=== PATIENT | female | born 1985 | race Two or more races ===

== ENCOUNTER 2019-05-02 14:54 | Emergency (ER) | payer BC, MEDICAID ==
[~2019-05-02] VITALS: Ht 165.1 cm; Wt 117.9 kg
[~2019-05-02 14:54] MED LIST: BACTRIM DS TAB1 EAC1 ORAL; NKM
[2019-05-02 15:01] VITALS: BP 127/92
[2019-05-02] MEDS ORDERED: NKM (15:05)
--- NOTE | 2019-05-02 15:11 | NUR ---
ED Nurse Note: PT WALKED IN DUE TO LLQ ABD PAIN WHICH STARTED LAST NIGHT. DENIES N/V/D. AAO X4 AMBULATORY AND SPEAKS IN CLEAR SENTENCES.
--- NOTE | 2019-05-02 15:36 | Emergency Room Report ---
History of Present Illness General Chief Complaint: Abdominal Pain Source: Patient Present Illness HPI 33 YO Female presents to the ED c/o 04/11 in severity intermittent left lower abdominal pain since yesterday. Denies N/V/F/C/, Constipation or diarrhea. Pt. denies suspicion of but reports she hasn't had a period in over 2 years. Pt. denies hx of ovarian cysts. She denies low back pain, urinary frequency, urgency , dysuria or hematuria. She denies vaginal D/C or bleeding. no relieving factors at this time. Denies hx of fibroids. Allergies: Coded Allergies: No Known Allergies (Unverified , 11/03/13) Patient History Past Medical History: see triage record Past Surgical History: none Pertinent Family History: none Last Menstrual Period: 2016 Now: No : 3 Para: 3 Reviewed Nursing Documentation: PMH: Agreed; PSxH: Agreed Nursing Documentation-PMH Past Medical History: No Stated History Review of Systems All Other Systems: negative except mentioned in HPI Physical Exam Vital Signs Date Time Temp Pulse Resp B/P (MAP) Pulse Ox O2 Delivery O2 Flow Rate FiO2 05/02/19 15:01 97.9 108 17 127/92 (104) 97 Room Air Sp02 EP Interpretation: reviewed, normal General Appearance: alert, GCS 15, non-toxic, mild distress Head: normocephalic, atraumatic Eyes: bilateral eye normal inspection, bilateral eye PERRL ENT: hearing grossly normal, normal voice Neck: full range of motion Respiratory: lungs clear, normal breath sounds, speaking full sentences Cardiovascular #1: regular rate, rhythm Gastrointestinal: normal bowel sounds, soft, no guarding, other - left adnexal tenderness Rectal: deferred Genitourinary: normal inspection, no CVA tenderness, other - left adnexal tenderness Musculoskeletal: back normal, gait/station normal, normal range of motion, non- tender Neurologic: alert, oriented x3, responsive, motor strength/tone normal, sensory intact, speech normal, grossly normal Psychiatric: judgement/insight normal Skin: no rash Lymphatic: no adenopathy Medical Decision Making PA Attestation Dr. Alcala is my supervising Physician whom patient management has been discussed with. Diagnostic Impression: Primary Impression: UTI (urinary tract infection) Qualified Codes: N30.00 - Acute cystitis without hematuria Additional Impression: Ovarian cyst Qualified Codes: N83.202 - Unspecified ovarian cyst, left side ER Course 33 YO Female presents to the ED c/o 04/11 in severity intermittent left lower abdominal pain since yesterday. Denies N/V/F/C/, Constipation or diarrhea. Pt. denies suspicion of but reports she hasn't had a period in over 2 years. Pt. denies hx of ovarian cysts. She denies low back pain, urinary frequency, urgency , dysuria or hematuria. She denies vaginal D/C or bleeding. no relieving factors at this time. Denies hx of fibroids. Ddx considered but are not limited to Diverticulitis, acute appy, ovarian torsion, ectopic , PID tubo-ovarian abscess, ovarian cyst. Vital signs: are WNL, pt. is afebrile H&PE are most consistent with possible ovarian cyst, however due to presentation will r/o torsion, ectopic, and stone. ORDERS: -CBC, CMP, LIPASE: WNL -UA:UTI pos. -URINE HCG: negative -Pelvic US Complete: --Normal blood flow to the bilateral ovaries, free fluid in the cul-de-sac and next to the left ovary/left adnexal area. ED INTERVENTIONS: - 60mg IM Toradol - 5mg [place] --Discussed with patient the results of her ultrasound imaging, conservative treatment and gynecological follow-up. Discussed with patient ED return precautions for worsening or new symptoms. DISCHARGE: At this time pt. is stable for d/c to home. Will provide printed patient care instructions, and any necessary prescriptions. Care plan and follow up instructions have been discussed with the patient prior to discharge. Labs Test 05/02/19 16:00 White Blood Count 15.4 K/UL (4.8-10.8) Red Blood Count 4.73 M/UL (4.20-5.40) Hemoglobin 14.3 G/DL (12.0-16.0) Hematocrit 41.7 % (37.0-47.0) Mean Corpuscular Volume 88 FL (80-99) Mean Corpuscular Hemoglobin 30.3 PG (27.0-31.0) Mean Corpuscular Hemoglobin Concent 34.3 G/DL (32.0-36.0) Red Cell Distribution Width 11.6 % (11.6-14.8) Platelet Count 259 K/UL (150-450) Mean Platelet Volume 6.1 FL (6.5-10.1) Neutrophils (%) (Auto) 77.1 % (45.0-75.0) Lymphocytes (%) (Auto) 13.5 % (20.0-45.0) Monocytes (%) (Auto) 6.3 % (1.0-10.0) Eosinophils (%) (Auto) 2.6 % (0.0-3.0) Basophils (%) (Auto) 0.6 % (0.0-2.0) Urine Color Yellow Urine Appearance Clear Urine pH 5 (4.5-8.0) Urine Specific [place] 1.020 (1.005-1.035) Urine Protein 2+ (NEGATIVE) Urine Glucose (UA) 3+ (NEGATIVE) Urine Ketones 1+ (NEGATIVE) Urine Blood 3+ (NEGATIVE) Urine Nitrite Negative (NEGATIVE) Urine Bilirubin Negative (NEGATIVE) Urine Urobilinogen 1 MG/DL (0.0-1.0) Urine Leukocyte Esterase Negative (NEGATIVE) Urine RBC 2-4 /HPF (0 - 2) Urine WBC 0-2 /HPF (0 - 2) Urine Squamous Epithelial Cells Moderate /LPF (NONE/OCC) Urine Bacteria Moderate /HPF (NONE) Urine HCG, Qualitative Negative (NEGATIVE) Sodium Level 142 MMOL/L (136-145) Potassium Level 3.7 MMOL/L (3.5-5.1) Chloride Level 105 MMOL/L (98-107) Carbon Dioxide Level 27 MMOL/L (21-32) Anion Gap 10 mmol/L (5-15) Blood Urea Nitrogen 11 mg/dL (7-18) Creatinine 0.9 MG/DL (0.55-1.30) Estimat Glomerular Filtration Rate > 60 mL/min (>60) Glucose Level 201 MG/DL (74-106) Calcium Level 8.8 MG/DL (8.5-10.1) Total Bilirubin 1.5 MG/DL (0.2-1.0) Direct Bilirubin 0.2 MG/DL (0.0-0.3) Aspartate Amino Transf (AST/SGOT) 20 U/L (15-37) Alanine Aminotransferase (ALT/SGPT) 55 U/L (12-78) Alkaline Phosphatase 86 U/L (46-116) Total Protein 8.0 G/DL (6.4-8.2) Albumin 3.6 G/DL (3.4-5.0) Globulin 4.4 g/dL Albumin/Globulin Ratio 0.8 (1.0-2.7) Lipase 120 U/L (73-393) CT/MRI/US Diagnostic Results CT/MRI/US Diagnostic Results : Imaging Test Ordered: PElvic US Impression "Minimal free fluid noted adjacent to the left adnexa and cul-de-sac. Normal appearance to the left and right ovary with symmetric blood flow to left and right ovaries. The uterus is unremarkable" per official radiology report- Please see report for specific details. Last Vital Signs Date Time Temp Pulse Resp B/P (MAP) Pulse Ox O2 Delivery O2 Flow Rate FiO2 05/02/19 15:11 101 18 Room Air 05/02/19 15:01 97.9 127/92 97 Disposition: HOME, SELF-CARE Condition: Stable Scripts Acetaminophen With Codeine (T#3) (TYLENOL #3 TAB*) Y Tab 1 TAB ORAL Q6H PRN for For Pain, #4 TAB Prov: Soraya Juares 05/02/19 Ibuprofen* (MOTRIN*) 600 Mg Tablet 600 MG ORAL THREE TIMES A DAY, #30 TAB 0 Refills Prov: Soraya Juares 05/02/19 Nitrofurantoin Monohyd/M-Cryst* (MACROBID 100 MG*) 100 Mg Capsule 100 MG ORAL EVERY 12 HOURS for 7 Days, #14 CAP Prov: Soraya Juares 05/02/19 Departure Forms: Return to Work Return to Work Date: May 06, 2019 Work Restrictions: None Other Restrictions: May return Sooner if Symptoms have resolved. Return to Full Activity: May 06, 2019 Patient Instructions: Ovarian Cyst, [id number], Urinary Tract Infection, Easy -to-Read Additional Instructions: Take medications as directed. Follow up with a COUNSEL within 3 days, even if your symptoms have resolved. * * Return sooner to ED if new symptoms occur, or current symptoms become worse. - Please note that this Emergency Department Report was dictated using [employer] demonstrator technology software, occasionally this can lead to erroneous entry secondary to interpretation by the dictation equipment. Soraya Juares May 02, 2019 15:36
[2019-05-02 16:21] LABS: APPEARANCE,URINE CLEAR; BILIRUBIN, URINE NEGATIVE (NEGATIVE); GLUCOSE, URINE (UA) 3+ (NEGATIVE); KETONES,URINE 1+ (NEGATIVE); LEUKOCYTE ESTERASE ,URINE NEGATIVE (NEGATIVE); NITRITE,URINE NEGATIVE (NEGATIVE); PH,URINE 5 (4.5-8.0); PROTEIN,URINE 2+ (NEGATIVE); UROBILINOGEN,URINE 1 MG/DL (0.0-1.0)
[2019-05-02 16:28] LABS: COLOR,URINE YELLOW
[2019-05-02 16:31] LABS: ANION GAP 10 mmol/L (5-15); BLOOD UREA NITROGEN 11 mg/dL (7-18); CALCIUM 8.8 MG/DL (8.5-10.1); CARBON DIOXIDE 27 MMOL/L (21-32); CHLORIDE 105 MMOL/L (98-107); CREATININE 0.9 MG/DL (0.55-1.30); POTASSIUM 3.7 MMOL/L (3.5-5.1); SODIUM 142 MMOL/L (136-145)
[2019-05-02 16:32] LABS: BASOPHILS % (AUTO) 0.6 % (0.0-2.0); EOSINOPHILS % (AUTO) 2.6 % (0.0-3.0); HEMATOCRIT 41.7 % (37.0-47.0); HEMOGLOBIN 14.3 G/DL (12.0-16.0); LYMPHOCYTES % (AUTO) 13.5 % (20.0-45.0); MEAN CORPUSCULAR VOLUME 88 FL (80-99); MONOCYTES % (AUTO) 6.3 % (1.0-10.0); NEUTROPHILS % (AUTO) 77.1 % (45.0-75.0); PLATELET COUNT 259 K/UL (150-450); RED BLOOD COUNT 4.73 M/UL (4.20-5.40); RED CELL DISTRIBUTION WIDTH 11.6 % (11.6-14.8); WHITE BLOOD COUNT 15.4 K/UL (4.8-10.8)
[2019-05-02 16:42] LABS: ALANINE AMINOTRANSFERASE 55 U/L (12-78); ALBUMIN 3.6 G/DL (3.4-5.0); ALBUMIN/GLOBULIN RATIO 0.8 (1.0-2.7); ALKALINE PHOSPHATASE 86 U/L (46-116); ASPARTATE AMINO TRANSFERASE 20 U/L (15-37); BILIRUBIN,TOTAL 1.5 MG/DL (0.2-1.0)
[2019-05-02 16:43] LABS: BILIRUBIN,DIRECT 0.2 MG/DL (0.0-0.3)
[2019-05-02 17:02] VITALS: BP 135/89
[2019-05-02] MEDS ORDERED: Tylenol #3 tab (300mg/30mg) ORAL ONE (18:00)
[2019-05-02] MEDS ORDERED: Ketorolac 30mg Inj IM ONE (18:00)
--- NOTE | 2019-05-02 19:14 | NUR ---
HAND-OFF: Report given to DIANE DOWNS.
--- NOTE | 2019-05-02 19:17 | Diagnostic Imaging Report ---
Indication: Pelvic pain negative urine test Technique: Transabdominal and transvaginal images of the pelvis. Doppler interrogation of the bilateral ovaries Comparison: 01/31/2007 Findings: Uterus measures 10 cm length by 4 cm AP. The endometrium measures 8 mm thick. No myometrial abnormality. There is a small cervical nabothian cysts incidentally noted. Trace free pelvic fluid is noted. The left ovary measures 4.1 cm length. The right ovary measures 4.2 cm length. No adnexal mass demonstrated. Impression: No acute or significant abnormality. Trace free fluid, presumably physiologic This agrees with the preliminary interpretation provided overnight by Dr. Gordillo
[2019-05-02] MEDS ORDERED: NITROFURANTOIN100 M2 ORAL (19:23)
[2019-05-02] MEDS ORDERED: ACETAMINOPHEN-1 EAC1 ORAL (19:23)
[2019-05-02] MEDS ORDERED: IBUPROFEN600 MG ORAL (19:23)
[2019-05-02 19:42] VITALS: BP 135/89
--- NOTE | 2019-05-02 19:43 | NUR ---
ER DISCHARGE NOTE: Patient is cleared to be discharged per ERMD, pt is aox4, on room air, with stable vital signs. pt was given dc and prescription instructions, pt was able to verbalize understanding, pt id band and iv site removed without complications. pt is able to ambulate with steady gait. pt took all belongings.
== END 2019-05-02 19:43 | disposition home or self-care (01) ==
LOC: EMR 16:18
DX: N30.00 Acute cystitis without hematuria (principal); N83.202 Unspecified ovarian cyst, left side
CPT/HCPCS: 36415; 76830; 76856; 80053; 81003; 81025; 82248; 83690; 85025; 87086; 96372; 99284; J1885